=== PATIENT | male | born 2000 | race Asian ===

== ENCOUNTER 2024-04-10 | Outpatient (REF) | payer OTHER, SELFPAY | END 2024-04-10 00:01 | disposition home or self-care (01) | LOC: HO.HHCLNP | PROVIDERS: Visit Provider Family Medicine | DX: K62.89 Other specified diseases of anus and rectum (principal); L02.91 Cutaneous abscess, unspecified | CPT/HCPCS: 87070; 87077; 87186; 87205 ==

== ENCOUNTER 2024-04-15 12:28 | Emergency (ER) | payer OTHER, SELFPAY ==
--- NOTE | ~2024-04-15 | CT_ITS ---
EXAMINATION: CT ABDOMEN AND PELVIS WITH CONTRAST CLINICAL INFORMATION: Reason for Exam ?abscess versus thrombosed internal hemorrhoid COMPARISON: None available. TECHNIQUE: Multidetector volumetric images were obtained from the superior aspect of the liver through the pubic symphysis following administration 85 mL of Omnipaque 350 intravenous contrast. Sagittal and coronal reformatted images were obtained on the technologist's workstation. Oral contrast: No This CT examination was performed using dose optimization techniques as appropriate, variously including the following: *Automated exposure control *Adjustment of mA and/or kV according to patient size (this includes techniques or standardized protocols for targeted exams where dose is matched to indication/reason for exam; i.e. extremities or head) *Use of iterative reconstruction technique DLP: 841 mGy-cm FINDINGS: LUNG BASES: The visualized lung bases are unremarkable. LIVER, GALLBLADDER, AND BILIARY TREE: The liver is normal in size, shape, and attenuation. No focal hepatic lesion or biliary ductal dilatation is present. Gallbladder appears somewhat contracted, suboptimally assessed. PANCREAS: Unremarkable. SPLEEN: Unremarkable. ADRENAL GLANDS: Unremarkable. KIDNEYS AND URETERS: Bilateral nephrograms are symmetric. No hydronephrosis or obstructing calculus identified. BLADDER: Unremarkable. GASTROINTESTINAL TRACT: No evidence of bowel obstruction or significant wall thickening. The appendix is unremarkable. No free fluid or free air is seen. No appreciable abscess in the perirectal region. ABDOMINAL WALL: No significant hernia is appreciated. LYMPH NODES: Normal. VASCULAR: Unremarkable. PELVIC VISCERA: Unremarkable. OSSEOUS STRUCTURES: Unremarkable. CT/CT abdomen pelvis w IV con IMPRESSION: No acute findings identified in the abdomen/pelvis. No perirectal abscess identified. Electronically signed by: Sajan Dennis MD 04/15/2024 11:46 PM EDT
--- NOTE | 2024-04-15 12:46 | ED_ITS ---
HPI - General Adult General Chief complaint: General Medical Stated complaint: ref here for ultrasound by pcp Time Seen by Provider: 04/15/24 20:52 Source: patient Mode of arrival: ambulatory Limitations: no limitations History of Present Illness HPI narrative: Patient is a 23-year-old male who presents emergency department for evaluation. He states that he was referred from [facility] for evaluation, concern for perianal abscess versus a possible fistula. He states he was seen there 1 week ago for rectal pain, and a rectal lump that has progressed despite antibiotic and lidocaine cream. He does admit that the area has drained pus- like drainage for the past 3 days. His pain is becoming significantly worse which has prompted his presentation here. He denies associated fevers, chills, diarrhea, constipation. Related Data Allergies Allergy/AdvReac Type Severity Reaction Status Date / Time No Known Allergies Allergy Verified 04/15/24 12:50 Review of Systems 2 Review of Systems: Yes all other systems are reviewed and are negative PMFSH Past Medical History Attestation statement: The following information was validated with the patient. Source: old records reviewed Social History Social History Advance Directives: No Advance Directives Information Provided: No Do you have a plan to hurt others: No Plan Physical Exam ED Vital Signs: Vital Signs - 24 hr 04/15/24 12:47 04/15/24 20:45 04/15/24 23:40 Temperature 98.2 F 98.4 F 98.2 F Pulse Rate 84 79 80 Respiratory Rate 18 16 20 Blood Pressure 125/70 126/67 116/42 L Pulse Oximetry 98 98 99 Oxygen Delivery Method Room Air Room Air Room Air 04/16/24 00:54 04/16/24 01:07 Temperature 97.8 F 97.8 F Pulse Rate 98 98 Respiratory Rate 16 16 Blood Pressure 120/52 L 120/52 L Pulse Oximetry 97 97 Oxygen Delivery Method Room Air Room Air BMI result Body Mass Index 35.4 Appearance: Alert.?Oriented to person, place and time. No acute distress.?Normal affect. Eyes: Pupils equal, round and reactive to light.? ENT: Pharynx normal.?? Neck: Normal inspection.? Neck supple.?? CVS: Heart sounds normal. Normal heart rate and rhythm.? Pulses normal.?? Respiratory: No respiratory distress.? Lung sounds clear to auscultation bilaterally?? Abdomen: Soft and non-tender. Normoactive bowel sounds. Rectal: Performed with shell trim operator, ED chemical lab technician Kenny. Patient has a small fissure of the skin at approximately 01:00 o'clock to the perirectal area measuring approximately 0.5 cm no active bleeding. At 03:00 o'clock-04:00 o'clock there is a palpable lump to the perianal region involving the anal rugae which is area he identifies as having pus drained from the area, there is a scabbed opening, and ecchymosis following with no appreciable fluctuance Skin: Skin warm and dry.? Normal skin color.? Extremities: No lower extremity edema.? Neuro: Moves all extremities spontaneously. Sensation intact bilaterally. Ambulates with normal steady gait. Course Course Course Narrative: RME performed by Darlene Moody PA-C. Patient is a 23 year old assigned male at presenting to the emergency department with a perirectal abscess with probable fistula. Patient states he was seen at the [facility] for this and they recommended he come here because his pain has gotten so much worse and is draining. Detailed physical exam and review of systems are deferred to the guncotton packer. Labs ordered. Patient placed back in the waiting room pending room availability and results. Reevaluation(s) Reevaluation #1: CT of the abdomen pelvis without abscess or fluid collection, no acute pathology. Suspect symptoms at this time secondary to internal thrombosed hemorrhoid. Discussed outpatient follow-up with General surgery as being arranged by his primary care doctor, I have also provided contact information for their office so that he may call in the morning to arrange for follow-up. Discussed strict return precautions. All questions answered. Medications Administered Discontinued Medications Generic Name Dose Route Start Last Admin Trade Name Freq PRN Reason Stop Dose Admin Acetaminophen 975 mg 04/15/24 17:01 04/15/24 17:03 Acetaminophen 325 Mg Tablet PO 04/15/24 17:02 975 mg ONCE ONE Administration Sodium Chloride 1,000 mls @ 999 mls/hr 04/15/24 22:00 04/16/24 00:26 Ns IV 04/15/24 23:00 Infused .Q1H1M FAUSTINO Infusion Ibuprofen 800 mg 04/15/24 19:24 04/15/24 19:43 Ibuprofen 800 Mg Tablet PO 04/15/24 19:25 800 mg ONCE ONE Administration Iohexol 85 ml 04/15/24 22:52 04/15/24 22:52 Iohexol 350 Mg/Ml 100 Ml Infus..Btl IV 04/15/24 22:53 85 ml ONCE ONE Administration Medical Decision Making Medical Decision Making [facility] Narrative: His provided history is most concerning for a perianal abscess however on examination appears to be more consistent with a thrombosed internal hemorrhoid given the discoloration of the skin significant pain and induration evaluation. ED attending Dr. Craven also evaluated area and agrees with the following plan of care, I will obtain a CT of the abdomen and pelvis for further evaluation of possible abscess. Serum labs have been obtained CBC is without leukocytosis, no anemia. No electrolyte derangement. No DANA. LFTs within normal range. Mildly elevated CRP at 0.65. Patient has been taking Tylenol and ibuprofen in addition to his topical lidocaine, he was offered additional pain medication for relief at this time and he declines interest in additional meds Differential Diagnosis Differential Diagnoses: The differential diagnosis associated with the presentation includes (See narrative above) Admission/Observation Consideration of admission/observation: Escalation of care including admission/observation considered Lab Data [facility] Lab Attestation statement: I reviewed the patient's lab results. (See narrative above) 04/15/24 14:34 04/15/24 14:34 Labs: Lab Results 04/15/24 Range/Units 14:34 WBC 5.9 (4.8-10.8) X10*3/uL RBC 6.18 H (4.60-5.80) X10*6/uL Hgb 15.8 (14.0-18.0) g/dl Hct 47.8 (42.0-52.0) % MCV 77.3 L (80.0-98.0) fL MCH 25.6 L (27.0-33.0) pg MCHC 33.1 (31.0-36.0) g/dl RDW 13.3 (11.0-16.0) % Plt Count 214 (160-400) X10*3/uL MPV 9.9 (9.4-12.4) fL Immature Gran % (Auto) 0.7 H (0.0-0.4) % Neut % (Auto) 61.7 (45-73) % Lymph % (Auto) 26.0 (20-40) % Spencer % (Auto) 8.1 (2-11) % Eos % (Auto) 2.5 (0-4) % Baso % (Auto) 1.0 (0-2) % Lymph # (Auto) 1.5 (1.2-4.9) X10*3/uL Spencer # (Auto) 0.5 (0.1-1.2) X10*3/uL Eos # (Auto) 0.2 (0.0-0.4) X10*3/uL Baso # (Auto) 0.1 (0.0-0.2) X10*3/uL Abs Immat Gran (auto) 0.04 H (0.00-0.03) X10*3/uL Absolute Neuts (auto) 3.7 (2.0-8.3) x10*3/uL Absolute Nucleated RBC 0.000 (0.0-0.012) X10*3/uL Nucleated RBC % (auto) 0.0 (0.0-0.2) /100WBC ESR 3 (0-15) MM/HR Sodium 139 (135-145) mmol/L Potassium 4.4 (3.3-5.1) mmol/L Chloride 108 (96-108) mmol/L Carbon Dioxide 25 (22-29) mmol/L Anion Gap 10 L (12-20) BUN 12 (9-16) mg/dL Creatinine 1.26 (0.5-1.4) mg/dL Estim Creat Clear Calc 104.9 Estimated GFR > 60 Random Glucose 88 (60-115) mg/dL Calcium 9.3 (8.4-10.2) mg/dL Magnesium 2.3 (1.6-2.6) mg/dL Total Bilirubin 0.5 (0.0-1.0) mg/dL AST 24 (5-37) U/L ALT 27 (0-40) U/L Alkaline Phosphatase 74 (39-117) U/L C-Reactive Protein 0.65 H (< or = 0.50) mg/dL Total Protein 7.3 (6.5-8.0) g/dL Albumin 4.4 (3.5-5.0) g/dL Radiology Impression Discussion of test interpretation with radiology: I have reviewed the radiologist's reading. Radiologist Impression: CT/CT abdomen pelvis w IV con IMPRESSION: No acute findings identified in the abdomen/pelvis. No perirectal abscess identified. External Record Review External record reviewed: Outpatient record Prescription Management I considered prescription management with: Pain Medication (See narrative above) and Antibiotic (No evidence of abscess, surrounding cellulitis, antibiotics deferred) Discharge Plan Discharge Clinical Impression: Hemorrhoids, internal, thrombosed Patient Disposition: Home, Self-Care Additional Instructions: You can take ibuprofen 200 mg, 3 tablets (600mg) every 6-8 hours as needed for pain, in addition to Tylenol 500 mg, 2 tablets (1,000mg) every 4-6 hours as needed for pain, but not to exceed 3 doses daily (3,000mg).? Sitz baths as described, topical lidocaine cream as previously prescribed. I do still feel that you would benefit from referral to General surgery, although your primary care doctor has sent this referral I have provided their contact information for you, please call the office tomorrow to schedule follow- up. You can return back to emergency department with any new or worsening symptoms or concerns. Referrals: [facility] General Surgeons [Provider Group] Interventions: ED Discharge Assessment Last Done: 04/16/24 01:07 Discharge Date/Time: 04/16/24 01:08 Print Language: Kiswahili
[2024-04-15 12:47] VITALS: BP 125/70; PULSE 84; RESP 18; TEMP 36.8; O2SAT 98; BMI 35.4
[2024-04-15 14:39] LABS: MANUAL DIFF FLAG NO
[2024-04-15 14:46] LABS: Basophils Absolute Auto 0.1 X10*3/uL (0.0-0.2); Eosinophils Absolute Auto 0.2 X10*3/uL (0.0-0.4); Eosinophils Percent Auto 2.5 % (0-4); Hematocrit 47.8 % (42.0-52.0); Hemoglobin 15.8 g/dl (14.0-18.0); Imm Gran Abs Auto 0.04 X10*3/uL (0.00-0.03); Imm Gran Pct Auto 0.7 % (0.0-0.4); Lymphocytes Absolute Auto 1.5 X10*3/uL (1.2-4.9); Mean Corpuscular HGB Conc 33.1 g/dl (31.0-36.0); Mean Corpuscular Hemoglobin 25.6 pg (27.0-33.0); Mean Corpuscular Volume 77.3 fL (80.0-98.0); Mean Platelet Volume 9.9 fL (9.4-12.4); Monocytes Absolute Auto 0.5 X10*3/uL (0.1-1.2); Monocytes Percent Auto 8.1 % (2-11); Neutrophils Absolute Auto 3.7 x10*3/uL (2.0-8.3); Neutrophils Percent Auto 61.7 % (45-73); Platelet Count 214 X10*3/uL (160-400); Red Blood Count 6.18 X10*6/uL (4.60-5.80); Red Cell Distribution Width 13.3 % (11.0-16.0); White Blood Count 5.9 X10*3/uL (4.8-10.8)
[2024-04-15 14:55] LABS: Alanine Aminotransferase 27 U/L (0-40); Albumin Level 4.4 g/dL (3.5-5.0); Alkaline Phosphatase 74 U/L (39-117); Anion Gap 10 (12-20); Aspartate Amino Transferase 24 U/L (5-37); Bilirubin Total 0.5 mg/dL (0.0-1.0); Blood Urea Nitrogen 12 mg/dL (9-16); C Reactive Protein 0.65 mg/dL (< or = 0.50); Calcium 9.3 mg/dL (8.4-10.2); Carbon Dioxide 25 mmol/L (22-29); Chloride 108 mmol/L (96-108); Creatinine Clr Calc Pharmacy 104.9; Estimated Glomerular Filt Rate > 60; Glucose Random 88 mg/dL (60-115); Magnesium 2.3 mg/dL (1.6-2.6); Potassium 4.4 mmol/L (3.3-5.1); Sodium 139 mmol/L (135-145); Total Protein 7.3 g/dL (6.5-8.0)
[2024-04-15 15:20] LABS: Erythrocyte Sedimentation Rate 3 MM/HR (0-15)
[2024-04-15] MEDS: Acetaminophen 325 MG TABLET 975 MG PO (17:03)
[2024-04-15] MEDS: Ibuprofen 800 MG TABLET PO (19:43)
[2024-04-15 20:45] VITALS: BP 126/67; PULSE 79; RESP 16; TEMP 36.9; O2SAT 98
[2024-04-15] MEDS: 0.9 % Sodium Chloride 1,000 ML 999 ML IV (22:37)
[2024-04-15] MEDS: iohexoL 350 MG/ML 100 ML INFUS..BTL 85 ML IV (22:52)
--- NOTE | 2024-04-15 23:33 | PC.NURSE ---
pt refusing pain rx at this time.
[2024-04-15 23:40] VITALS: BP 116/42; PULSE 80; RESP 20; TEMP 36.8; O2SAT 99
[2024-04-16 00:54] VITALS: BP 120/52; PULSE 98; RESP 16; TEMP 36.6; O2SAT 97
[2024-04-16 01:07] VITALS: BP 120/52; PULSE 98; RESP 16; TEMP 36.6; O2SAT 97
== END 2024-04-16 01:08 | disposition home or self-care (01) ==
PROVIDERS: Physician Assistant Medical; Emergency Provider Emergency Medicine; PCP Family Medicine
DX: K64.8 Other hemorrhoids (principal); R10.9 Unspecified abdominal pain; Z79.899 Other long term (current) drug therapy
CPT/HCPCS: 36415; 74177; 80053; 83735; 85025; 85652; 86140; 96360; 96361; 99284; Q9967

== ENCOUNTER 2024-04-17 09:23 | Outpatient (AMB) | payer MEDICAID, SELFPAY ==
--- NOTE | 2024-04-17 09:25 | A.OFFVIS_ITS ---
Vital Signs 04/17/24 09:31 Height 5 ft 6 in Weight 226 lb BMI 36.5 BP 128/71 Blood Pressure Location Rt brachial Position Sitting Pulse 77 Intake Visit Reasons: Remedios anal pain/abscess Intake Note: Patient referred after ER visit on 04-15-2024. Patient c/o perianal pain/ abscess. Alternating tylenol, ibuprofen. Patient c/o: painful sitting, walking. Notice blood on gauze. 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 Proximal month ago patient developed no rectal pain and swelling. A few weeks later he developed spontaneous drainage. He was seen in emergency department now presents here for further evaluation. Patient otherwise tolerating a diet, has regular bowel habits. He denies any anal receptive practice. No history of inflammatory bowel disease/Crohn's. Chart was reviewed and patient evaluated [facility] Social History (Updated 04/17/24 @ 09:32 by GENEVA Dozier) Alcohol intake: never Patient Tobacco Use Status: Never used Tobacco Physical Exam Vital Signs: Last Vital Signs Pulse 77 04/17/24 09:31 BP 128/71 04/17/24 09:31 BMI result Body Mass Index 36.5 GI Other: Abdomen corpulent, soft, benign Anorectal exam demonstrates what appears to be a fistula in the right lateral perianal area. Rectal exam was deferred secondary to patient's discomfort. Exam was quite difficult because the patient was very uncomfortable and had significant pain with evaluation. Assessment & Plan Assessment & Plan (1) [id number]: Code(s): K60.3 - Anal fistula Category: Medical Plan I discussed the findings with the patient and his father, Fistula in ANO. Treatment plan is to have Dr. Enamorado, our colorectal surgeon, evaluate the patient indirect further interventions and studies based on his recommendation. Coding Level of Care Code New Pt Level 4 (52471) Diagnoses Ozlllzr-[id number] K60.3
[2024-04-17 09:31] VITALS: BP 128/71; PULSE 77; BMI 36.5
== END 2024-04-17 09:53 | disposition home or self-care (01) ==
PROVIDERS: PCP Family Medicine; Visit Provider Surgery
DX: K60.3 Anal fistula (principal)
CPT/HCPCS: 99204

== ENCOUNTER → 2024-04-17 09:23 | Outpatient (BNVA) | payer OTHER, SELFPAY | PROVIDERS: PCP Family Medicine; Visit Provider Surgery | DX: K60.3 Anal fistula (principal) | CPT/HCPCS: 99202 ==

== ENCOUNTER 2024-04-19 07:03 | Day surgery (SDC) | payer MEDICAID, SELFPAY ==
--- NOTE | 2024-04-17 13:40 | HO.ANESPROP2 ---
Documented by User: Hannah Judge NP 04/17/24 13:41 HPI - Anesthesia Eval Consult details Narrative: 23yo M for EUA,I&D,possible seton placement PMFSH Active Problems Active Problems: All Active Problems Mwkjdvo-fc-qky (Acute) Social History Social History Alcohol intake: never Patient Tobacco Use Status: Never used Tobacco Are you DNR?: No Advance Directives: No Advance Directives Information Provided: Yes Recently lost weight without trying: No Nutrition Risks: No Nutritional Risk Meds Allergies Allergy/AdvReac Type Severity Reaction Status Date / Time No Known Allergies Allergy Verified 04/17/24 09:30 Home Medications ?Medication ?Instructions ?Recorded ?Confirmed ?Last Taken ?Type ibuprofen 800 mg tablet 800 mg PO TID 04/17/24 04/17/24 04/18/24 History lidocaine 5 % topical cream appl topical BID 04/17/24 04/17/24 04/18/24 History sulfamethoxazole 800 1 tab PO BID 04/17/24 04/17/24 04/18/24 History mg-trimethoprim 160 mg tablet Exam Pertinent Lab Results Pertinent Lab Results: Laboratory Tests 04/15/24 14:34 WBC 5.9 Hgb 15.8 Hct 47.8 Plt Count 214 Sodium 139 Potassium 4.4 Chloride 108 Carbon Dioxide 25 BUN 12 Creatinine 1.26 Assessment and Plan Assessment Anesthesia Assessment: Chart Reviewed Documented by User: Kelly Cali MD 04/19/24 08:56 PMFSH Active Problems Active Problems: All Active Problems Blcsvyj-nz-chq (Acute) Increased BMI Family History Family history of problems with anesthesia: No Surgical History History of Problems with Anesthesia: No Social History Social History Alcohol intake: never Patient Tobacco Use Status: Never used Tobacco Are you DNR?: No Advance Directives: No Advance Directives Information Provided: Yes Recently lost weight without trying: No Nutrition Risks: No Nutritional Risk Meds Allergies Allergy/AdvReac Type Severity Reaction Status Date / Time No Known Allergies Allergy Verified 04/17/24 09:30 Home Medications ?Medication ?Instructions ?Recorded ?Confirmed ?Last Taken ?Type ibuprofen 800 mg tablet 800 mg PO TID 04/17/24 04/17/24 04/18/24 History lidocaine 5 % topical cream appl topical BID 04/17/24 04/17/24 04/18/24 History sulfamethoxazole 800 1 tab PO BID 04/17/24 04/17/24 04/18/24 History mg-trimethoprim 160 mg tablet Exam Height,Weight and Vital Signs: Height 5 ft 6 in Weight 102.965 kg Vital Signs Temp Pulse Resp BP Pulse Ox O2 Del Method 04/19/24 07:15 97.5 F 75 18 101/55 L 97 Room Air Airway Mallampati Class: III TM Dist: >3cm Neck ROM: Full Loose/Missing/Broken Teeth: No (Denies broken, loose, missing teeth) Heart: RRR Lungs: CTAB Assessment and Plan Assessment Anesthesia Assessment: Anesthesia Plan Discussed and Chart Reviewed Final Anesthetic Review Family History of Problems with Anesthesia: No History of Problems with Anesthesia: No NPO: Yes ASA Class: II Final Preanesthetic Review: No Changes in Pt Med Stat, Meds/Allgs Chart Reviewed, Consent Obtained/Reviewed and Anes Risks/Benef Reviewed Patient Risk: Low Procedure Risk: Low Assessment/Block/Sedation in SS: Assess/Block/Sedation-SS Anesthetic Plan Anesthetic Plan: GA Disposition: Standard PACU
[2024-04-19] VITALS (11 sets, daily range): BP systolic 93–126; BP diastolic 45–80; PULSE 65–93; RESP 12–18; TEMP 36.4–36.6; O2SAT 97–100; BMI 36.6
[2024-04-19] MEDS: Lactated Ringers 1,000 ML 100 ML IVCONT (07:43)
--- NOTE | 2024-04-19 08:04 | MHC.SHP ---
Pre-Procedural Eval Section A - 24 Hr Update-Section A only Date of Service: 04/19/24 The patient is an INPATIENT: Yes Changes since office visit: No Cold of Flu in the past 2 weeks, No New Medical Problems, No Changes in Medication and No Patient answered all questions The patient has been examined within 24 hours of the surgical procedure. The History & Physical has been completed within 30 days and I have reviewed it.: Yes Section B - Complete if H&P > 30 days Chief Complaint: Anal fistula Allergies: Allergies Allergy/AdvReac Type Severity Reaction Status Date / Time No Known Allergies Allergy Verified 04/17/24 09:30 Plan I have reviewed the history and physical and performed a pertinent physical examination on my patient. No changes have occurred unless specified. Time Spent With Patient Time: Total time managing care of this patient today ____ minutes.
--- NOTE | 2024-04-19 09:46 | W.PM.OPN ---
Operative Note Operative Note Date of Service: 04/19/24 Narrative: Preop diagnosis: Anal fistula Postop diagnosis: 1.Anal fistula 2.thrombosed external hemorrhoid Procedure: Exam under anesthesia, seton placement for an anal fistula; and hemorrhoidectomy x 1 column Surgeon: Odell Enamorado MD The patient is a 23-year-old male seen in the office because of drainage and pain in the perianal area. He had a sinus in the right side along with what appeared to be a thrombosed external hemorrhoid on the same side. In view of his complaints, I had schedule him for some under anesthesia and likely seton placement. He understood the technique of the planned procedure as well as the risks, benefits, and alternatives He was brought to the operating room. He was placed in prone juan josé-knife position under general anesthesia via endotracheal tube. The buttocks were retracted with wide tape laterally. The perianal area was prepped and draped in the usual sterile fashion. A surgical time-out was done. The patient received Cefotan 2 g IV preoperatively The perianal area was infiltrated with lidocaine 1%. Examination of the perianal area revealed thrombosed hemorrhoid on the right side. There was note of an external fistula sinus on the right posterolateral area, about 4 cm from the verge I inserted the Kaiden Mccall retractor. I examined the anal canal circumferentially. There were no other lesions seen. There was no induration I was able to pass the probe easily from the external sinus radially into the dentate line towards its internal opening. I passed a seton around this using a vessel loop. I shortened the tract by dividing the overlying skin and the external fistulous tract with electrocautery. I closed the seton as a loop by tying this with silk 3-0 ties I cauterized the edges of the opened external sinus to achieve hemostasis The patient also had this external hemorrhoid with thrombosis on the anal verge on the right side. I evacuated the clot and excise the hemorrhoid with electrocautery. I left this open as the surface area was small. I observed for hemostasis. Once hemostasis was confirmed, I infiltrated the perianal area with Marcaine 0.5% for postop analgesia. Dressings were applied. The procedure was completed. The patient tolerated procedure well. There were no immediate complications. Initial and final counts of sponges and instruments were correct. Estimated blood loss about 20 cc The patient was extubated without difficulty and transferred to the recovery room with stable vital signs.
[2024-04-19] MEDS: oxyCODONE HCl Immed Release 5 MG TABLET PO (11:30)
== END 2024-04-19 12:05 | disposition home or self-care (01) ==
PROVIDERS: PCP Family Medicine; Visit Provider Surgery
PROC: (CPT 46020; principal; 2024-04-19 08:30)
DX: K60.3 Anal fistula (principal); K64.5 Perianal venous thrombosis; K62.89 Other specified diseases of anus and rectum; Z79.1 Long term (current) use of non-steroidal anti-inflammatories (NSAID)
CPT/HCPCS: 46020; 46320; J0131; J2250; J2704; J3010

== ENCOUNTER → 2024-04-19 07:03 | Outpatient (BNV) | payer MEDICAID, SELFPAY | PROVIDERS: PCP Family Medicine; Visit Provider Surgery | DX: K64.8 Other hemorrhoids (principal); K60.3 Anal fistula | CPT/HCPCS: 46020; 46320 ==

== ENCOUNTER 2024-05-09 14:52 | Outpatient (AMB) | payer MEDICAID, SELFPAY ==
--- NOTE | 2024-05-09 14:58 | MHC.OFFVIS ---
Intake Visit Reasons: S/P EUA, poss I&D, poss seton placement Intake Note: This patient presents for post-op assessment status post Exam under anesthesia, seton placement for an anal fistula; and hemorrhoidectomy x 1 column. Pt c/o; reports some stinging when washing the area, reports draining, reports there is a wound where is seton is , reports he is doing sitz baths 1-2 times daily. 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 He tolerated procedure well He says that he has been doing well lately and feels much better with regards to pain. He seems to be quite happy with the outcome so far. [facility] Surgical History Hx of surgical procedure (~04/19/24) Social History Alcohol intake: never Patient Tobacco Use Status: Never used Tobacco Review of Systems Const Denies chills and Denies fever(s) Card Denies chest pain Resp Denies cough GI Denies abdominal pain Physical Exam Const Other: Able to sit down comfortably General: comfortable and no acute distress Resp Effort & Inspection: normal respiratory effort GI Other: Rectal exam shows the hemorrhoidectomy sites to be healing well, the seton is in place, there was no new induration, there is an open wound on the fistula tract, no new sinuses noted, no evidence of infection Assessment & Plan Assessment & Plan (1) Lgsaiot-is-jrm: Code(s): K60.3 - Anal fistula Category: Medical Plan: Status post hemorrhoidectomy and seton placement. He is doing quite well. I advised him to continue to do hot Sitz baths. I will see him again next month to see if we can tighten the seton. He appears comfortable and seems to be happy with the outcome so far. Coding Level of Care Code Global (36539) Diagnoses Sbzewqu-io-rza K60.3
== END 2024-05-09 15:19 | disposition home or self-care (01) ==
PROVIDERS: PCP Family Medicine; Visit Provider Surgery
DX: K60.3 Anal fistula (principal)
CPT/HCPCS: 99024

== ENCOUNTER → 2024-05-09 14:52 | Outpatient (BNVA) | payer MEDICAID, SELFPAY | PROVIDERS: PCP Family Medicine; Visit Provider Surgery | DX: K60.3 Anal fistula (principal) | CPT/HCPCS: 99212 ==

== ENCOUNTER → 2024-06-05 10:48 | Outpatient (REF) | payer MEDICAID, SELFPAY ==
--- NOTE | 2024-06-05 10:50 | HM_ITS ---
* Total monitoring time 2 days. * Underlying rhythm is sinus with an average rate of 95/Min. * No significant supraventricular or ventricular ectopy. * Sinus tachycardia noted but no otherwise, no significant arrhythmias. * No significant pauses or AV blocks. * Patient marker associated with sinus tachycardia. * Palpitations/skipped beats/fullness in patient diary associated with sinus tachycardia. MTDD
== END ==
LOC: HO.CARD 10:48
PROVIDERS: PCP Family Medicine; Visit Provider Internal Medicine
DX: R94.31 Abnormal electrocardiogram [ECG] [EKG] (principal); R00.2 Palpitations
CPT/HCPCS: 93225

== ENCOUNTER → 2024-06-05 10:50 | Outpatient (BNV) | payer MEDICAID, SELFPAY | PROVIDERS: PCP Family Medicine; Visit Provider Internal Medicine | DX: R00.0 Tachycardia, unspecified (principal) | CPT/HCPCS: 93227 ==

== ENCOUNTER 2024-06-12 08:50 | Outpatient (AMB) | payer MEDICAID, SELFPAY ==
--- NOTE | 2024-06-12 09:04 | A.OFFVIS_ITS ---
Vital Signs 06/12/24 09:12 Height 5 ft 7 in Weight 231 lb BMI 36.2 BP 127/60 Blood Pressure Location Lt brachial Position Sitting Pulse 81 Intake Visit Reasons: 1 month follow up S/P EUA poss seton Intake Note: This patient presents for one month follow-up seton. Pt c/o; reports no complaints at this time. 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 He denies any new complaints. He describes some drainage from the area along with some blood once in a while. He does admit to some pain after he has been standing for long periods of time. He does state that overall, he feels much better compared to prior to the seton placement. [facility] Surgical History Hx of surgical procedure (~04/19/24) Social History Alcohol intake: never Patient Tobacco Use Status: Never used Tobacco Review of Systems Const Denies chills and Denies fever(s) Physical Exam Vital Signs: Last Vital Signs Pulse 81 06/12/24 09:12 BP 127/60 06/12/24 09:12 BMI result Body Mass Index 36.2 Const General: comfortable and no acute distress Resp Effort & Inspection: normal respiratory effort GI Other: Rectal exam shows the seton to be in place, still relatively tight the remaining fistula tract. Assessment & Plan Assessment & Plan (1) Gpzphjh-cd-[id number]: Code(s): K60.3 - Anal fistula Category: Medical Plan: Status post seton placement. The seton is still tight around the remaining fistula tract. I did not tighten this today. Otherwise, he seems to be doing well and feels much better compared to before the surgery I was therefore see him again in the office in about 1 month. Coding Level of Care Code Global (61156) Diagnoses Rpawdbo-au-vvr K60.3
[2024-06-12 09:12] VITALS: BP 127/60; PULSE 81; BMI 36.2
== END 2024-06-12 09:37 | disposition home or self-care (01) ==
PROVIDERS: PCP Family Medicine; Visit Provider Surgery
DX: K60.30 Anal fistula, unspecified (principal)
CPT/HCPCS: 99024

== ENCOUNTER → 2024-06-12 08:50 | Outpatient (BNVA) | payer MEDICAID, SELFPAY | PROVIDERS: PCP Family Medicine; Visit Provider Surgery | DX: K60.30 Anal fistula, unspecified (principal); Z98.890 Other specified postprocedural states | CPT/HCPCS: 99212 ==

== ENCOUNTER 2024-07-08 08:56 | Outpatient (AMB) | payer MEDICAID, SELFPAY ==
[2024-07-08 09:02] VITALS: BMI 36.2
--- NOTE | 2024-07-08 09:02 | A.OFFVIS_ITS ---
Vital Signs 07/08/24 09:02 Height 5 ft 7 in Weight 231 lb 0.006 oz BMI 36.2 Intake Visit Reasons: 1 month follow up S/P EUA poss seton Intake Note: This patient presents for one month follow up S/P EUA , seton. Pt c/o; reports no complaints. Mobile Phlebotomist Required: No Accompanied by: Other Relationship Allergies No Known Allergies Allergy (Verified 07/08/24 09:07) Medication List - Last Reconciled 07/08/24 by Odell Enamorado MD ibuprofen 600 mg PO Q6H PRN ibuprofen 800 mg PO TID lidocaine 5% appl topical BID oxycodone-acetaminophen 5-325 mg (Percocet) 1 tab PO Q4-6H PRN sulfamethoxazole-trimethoprim 800-160 mg 1 tab PO BID HPI HPI 1 month follow up S/P EUA poss seton: Details: He is here for follow-up for his anal fistula with a seton in place. He denies any new complaints. He describes some scanty drainage from the fistula tract. Overall, he says he feeling better. [facility] Surgical History Hx of surgical procedure (~04/19/24) Social History Alcohol intake: never Patient Tobacco Use Status: Never used Tobacco Review of Systems Const Denies chills and Denies fever(s) Card Denies chest pain, Denies dyspnea and Denies dyspnea on exertion Resp Denies cough, Denies dyspnea and Denies dyspnea on exertion GI Denies hematochezia and Denies change in bowel habits Denies hematuria and Denies difficulty urinating Musc Denies back pain and Denies limited range of motion Neuro Denies focal weakness and Denies convulsions Psych Denies depression and Denies mood swings Physical Exam Vital Signs: BMI result Body Mass Index 36.2 Const General: comfortable and no acute distress Resp Effort & Inspection: normal respiratory effort GI Other: Rectal exam shows the seton to be still tight in the the tract. The fistula tract is very short. There is no new induration or any new sinuses Assessment & Plan Assessment & Plan (1) Zphkriz-wl-tlb: Code(s): K60.3 - Anal fistula Category: Medical Plan: I will leave the seton in place. The residual fistula is very short. I might remove this next month in the office on a follow-up. I will therefore see him again. He is to continue warm soaks to the area as possible with good perianal hygiene as well. Coding Level of Care Code Est Pt Level 2 (43993) Diagnoses Lqrpuxc-qo-amx K60.3
== END 2024-07-08 09:21 | disposition home or self-care (01) ==
PROVIDERS: PCP Family Medicine; Visit Provider Surgery
DX: K60.30 Anal fistula, unspecified (principal)
CPT/HCPCS: 99212

== ENCOUNTER → 2024-07-08 08:56 | Outpatient (BNVA) | payer MEDICAID, SELFPAY | PROVIDERS: PCP Family Medicine; Visit Provider Surgery | DX: K60.30 Anal fistula, unspecified (principal); Z96.89 Presence of other specified functional implants | CPT/HCPCS: 99212 ==

== ENCOUNTER 2024-08-12 08:56 | Outpatient (AMB) | payer MEDICAID, SELFPAY ==
[2024-08-12 08:57] VITALS: BP 128/60; PULSE 83; BMI 36.5
--- NOTE | 2024-08-12 08:57 | A.OFFVIS_ITS ---
Vital Signs 08/12/24 08:57 Height 5 ft 7 in Weight 233 lb BMI 36.5 BP 128/60 Blood Pressure Location Rt brachial Position Sitting Pulse 83 Intake Visit Reasons: 1m follow mup s/p EUA poss seton Intake Note: This patient presents for one month follow-up seton. Pt c/o; reports no complaints at this time. Bilingual Office Assistant Required: No Accompanied by: Father Allergies No Known Allergies Allergy (Verified 08/12/24 09:03) Medication List - Last Reconciled 08/12/24 by Odell Enamorado MD ibuprofen 600 mg PO Q6H PRN ibuprofen 800 mg PO TID lidocaine 5% appl topical BID oxycodone-acetaminophen 5-325 mg (Percocet) 1 tab PO Q4-6H PRN sulfamethoxazole-trimethoprim 800-160 mg 1 tab PO BID HPI HPI 1m follow mup s/p EUA poss seton: Details: He is here for follow-up for his anal fistula with a seton in place. He says he still notices some drainage He denies any significant pain or any PFSH Surgical History Hx of surgical procedure (~04/19/24) Social History Alcohol intake: never Patient Tobacco Use Status: Never used Tobacco Review of Systems Const Denies chills and Denies fever(s) Card Denies chest pain Resp Denies cough Physical Exam Vital Signs: Last Vital Signs Pulse 83 08/12/24 08:57 BP 128/60 08/12/24 08:57 BMI result Body Mass Index 36.5 Const General: comfortable and no acute distress Resp Effort & Inspection: normal respiratory effort Cardio Rate: regular rate GI Other: Rectal exam shows the seton in place, fistula tract is shorter about the seton is a little looser around the remaining tract Palpation (GI): Soft to palpation Assessment & Plan Assessment & Plan (1) Mvgnyeg-vx-qhx: Code(s): K60.3 - Anal fistula Category: Medical Plan: Seton in place. I was able to tighten the seton some more using a silk 2-0 tie. The residual tract is much shorter. I will see him again in another month. Hopefully the seton will have cut through by then. He can take Tylenol and ibuprofen p.r.n. for pain. Coding Level of Care Code Est Pt Level 3 (85118) Diagnoses Nnpfbcc-ru-luy K60.3
== END 2024-08-12 09:33 | disposition home or self-care (01) ==
PROVIDERS: PCP Family Medicine; Visit Provider Surgery
DX: K60.30 Anal fistula, unspecified (principal)
CPT/HCPCS: 99213

== ENCOUNTER → 2024-08-12 08:56 | Outpatient (BNVA) | payer MEDICAID, SELFPAY | PROVIDERS: PCP Family Medicine; Visit Provider Surgery | DX: Z48.89 Encounter for other specified surgical aftercare (principal); Z98.890 Other specified postprocedural states | CPT/HCPCS: 99212 ==

== ENCOUNTER → 2024-09-23 13:35 | Outpatient (BNVA) | payer MEDICAID, SELFPAY | PROVIDERS: PCP Family Medicine; Visit Provider Surgery | DX: K60.30 Anal fistula, unspecified (principal) | CPT/HCPCS: 99212 ==

== ENCOUNTER 2024-11-04 13:29 | Outpatient (AMB) | payer MEDICAID, SELFPAY ==
--- NOTE | 2024-11-04 13:31 | A.OFFVIS_ITS ---
Vital Signs 11/04/24 13:36 Height 5 ft 7 in Weight 233 lb 11.04 oz BMI 36.6 BP 130/82 Blood Pressure Location Lt brachial Position Sitting Intake Visit Reasons: 1 month s/p seton Intake Note: This patient presents for one month follow-up seton. Pt c/o; admits to continued discharge, sometimes bloody, constipation on and off Autotransfusionist Required: No Accompanied by: Other Relationship Allergies No Known Allergies Allergy (Verified 11/04/24 13:35) Medication List - Last Reconciled 11/04/24 by Odell Enamorado MD ibuprofen 600 mg PO Q6H PRN ibuprofen 800 mg PO TID lidocaine 5% appl topical BID oxycodone-acetaminophen 5-325 mg (Percocet) 1 tab PO Q4-6H PRN sulfamethoxazole-trimethoprim 800-160 mg 1 tab PO BID HPI HPI 1 month s/p seton: Details: He is here for follow-up for his anal fistula with a seton in place. He currently denies significant new complaints. He says that he is a lot more comfortable than last month. He does state that there is some occasional drainage from the remaining fistula tract. He denies any new swelling. [facility] Surgical History Hx of surgical procedure (~04/19/24) Social History Alcohol intake: never Patient Tobacco Use Status: Never used Tobacco Review of Systems Const Denies chills and Denies fever(s) Card Denies chest pain at rest Resp Denies cough GI Denies abdominal pain Physical Exam Const General: comfortable and no acute distress Resp Effort & Inspection: normal respiratory effort GI Other: Rectal exam shows the seton to be in place, with a very short residual fistula tract, no new sinuses or induration Palpation (GI): Soft to palpation and nontender Assessment & Plan Assessment & Plan (1) Bgccsvk-fg-yhe: Code(s): K60.3 - Anal fistula Category: Medical Plan: Seton in place. He has a very short residual fistula tract. I was able to tighten the seton some more using a silk 3-0 tie I will see him again in the office in about a month. Hopefully the seton have cut through completely by then. Coding Level of Care Code Est Pt Level 3 (49538) Diagnoses Acspwme-ur-uue K60.3
[2024-11-04 13:36] VITALS: BP 130/82; BMI 36.6
--- OUTSIDE RECORDS SUMMARY | 2024-11-04 15:41 | XMS_ITS | Clinical Summary ---
Author Organization [employer] [facility] Address [address] [facility] 7t [place] [address] Care Team Providers Care Therapist Rrt Name Role Phone Jud Betts MD Primary Care Provider [phone]- [phone] Allergies No known active allergies Medications Lidocaine 5 % creamIndication s:Perianal pain Apply topically bid 30 g 3 4 Active Active Problems Problem Noted Date Diagnosed Date Perianal pain 04/10/2024 Assessment & Plan (04/10/2024 5:52 PM EDT): Differential includes abscess, vs fissure, less likely thrombosed hemorrhoid given puss and ulceration. -rx Augmentin 875/125 started 04/10/24 for 10 days -wound culture obtained 04/10/24 -sitz baths -lidocaine cream and ibuprofen prn for pain -referral to gen surgery -ER precautions discussed -He agrees with the plan. Encounters Date Type Department Care Team Description 11/01/2024 Population Health Risk Score [facility] (C3) Department [address] [id number] Provider, Population Health Generic from Last 3 Months Immunizations Name Administration Dates Next Due DTaP 12/17/2006, 3,06/17/2002,04/15,02/13/2002 HiB, unspecified 06/17/2003,06/17/2002, 2 Hib (PRP-T) 04/15/2002 IPV 12/17/2006, 3,06/17/2002,04/15,02/13/2002 Influenza injectable quadriv alent preservative free 09/01/2020 MMR 12/17/2006,12/16/2002 Meningococcal MCV4P [id number] 03/17/2021 Tdap 03/17/2021 Social History Tobacco Use Types Packs/Day Years Used Date Smoking Tobacco: Never Smokeless Tobacco: Never Tobacco Cessation:Counseling Given: Not Answered Sex and Gender Information Value Date Recorded Sex Assigned at Male 06/20/2022 10:37 AM EDT Legal Sex Male 10:37 AM EDT Gender Identity Male 06/20/2022 10:37 AM EDT Sexual Orientation Straight 06/20/2022 10 :37 AM EDT Last Filed Vital Signs Vital Sign Reading Time Taken Comments Blood Pressure 119/78 05/17/2024 3:57 PM EDT Pulse 72 05/17/2024 3:57 PM EDT Temperature 36.6 ??C (97.9 ??F) 05/17/2024 3:57 PM ED T Respiratory Rate 20 05/17/2024 3:57 PM EDT Oxygen Saturation 98% 05/17/2024 3:57 PM EDT Inhaled Oxygen Concentration - - Weight 100 kg (221 lb) 05/17/2024 3:57 PM EDT Height 167.6 cm (5' 6 ) 05/17/2024 3:57 PM EDT Body Mass Index 35.67 05/17/2024 3:57 PM EDT Plan of Treatment Health Maintenance Due Date Last Done Comments Chlamydia and Gonorrhea Screening 2001 Depression Screening 2001 HIV Screening 2001 SDOH Screening 2001 Alcohol/Substance Use Screening 2013 Family Planning (PISQ) 2016 HPV Vaccines (1 - Male 3-dose series) 2016 Hepatitis C Screening 12/14/2019 Hepatitis B Vaccines (1 of 3 - 19+ 3-dose series) 2020 COVID-19 Vaccine (3 - 2023- season) 2024 01/06/2021, 12/16/2020 Influenza Vaccine (#1) 2024 09/01/2020 Tobacco Screening 04/15/2025 04/15/2024 DTaP/Tdap/Td Vaccines (7 - Td or Tdap) 03/17/2031 03/17/2021, 12/17/2006, 06/17/2003, Additional history exists Zoster Vaccines (1 of 2) 12/14/2051 RSV Patients and Patients Aged 60 years or older (1 - 1-dose 75+ series) 2076 HIB Vaccines Completed 06/17/2003, 05/22, 04/15/2002, Additional history exists IPV Vaccines Completed 12/17/2006, 05/22, 06/17/2002, Additional history exists Meningococcal Vaccine Aged Out 03/17/2021 No terri jose eligible based on patient's age to complete this topic Hepatitis A Vaccines Aged Out No long er eligible based on patient's age to complete this topic Pneumococcal Vaccine: Pediatrics (0 to 5 Years) and At-Risk Patients (6 to 49) Years) Aged Out No longer eligible based on patient's age to complete this topic RSV under 20 months Aged Out No longe r eligible based on patient's age to complete this topic Rotavirus Vaccines Aged Out No longer eligible based on patient's age to complete this topic Insurance [facility] [place] [id number] [place] [id number] Care Teams Therapist Rrt Relationship Specialty Start Date End Date Jud Betts MD [address] [place] [address] [place] [address] PCP - General Internal Medicine 03/17/21
--- OUTSIDE RECORDS SUMMARY | 2024-11-04 15:41 | XMS_ITS | Encounter Summary ---
Author Organization [employer] Address [address] [facility] 7t [place] [address] Care Team Providers Care Student Development Specialist Name Role Phone Jud Betts MD Primary Care Provider [phone]- [phone] Encounter Details Date Type Department Care Team ([facility] st Contact Info) Description 11/01/2024 Population Health Risk Score [facility] () Department [address] [place] [phone] Provider, Population Health Generic Social History Tobacco Use Types Packs/Day Years Used Date Smoking Tobacco: Never Smokeless Tobacco: Never Sex and Gender Information Value Date Recorded Sex Assigned at Male 06/20/2022 10:37 AM EDT Legal Sex Male 10:37 AM EDT Gender Identity Male 06/20/2022 10:37 AM EDT Sexual Orientation Straight 06/20/2022 10 :37 AM EDT documented as of this encounter Plan of Treatment Not on file documented as of this encounter Visit Diagnoses Not on filedocumented in this encounter Care Teams Student Development Specialist Relationship Specialty Start Date End Date Jud Betts MD [address] [place] [address] PCP - General Internal Medicine 03/17/21 documented as of this encounter
== END 2024-11-04 13:43 | disposition home or self-care (01) ==
LOC: HO.HGS 13:30
PROVIDERS: PCP Family Medicine; Visit Provider Surgery
DX: K60.30 Anal fistula, unspecified (principal)
CPT/HCPCS: 99213

== ENCOUNTER → 2024-11-04 13:29 | Outpatient (BNVA) | payer MEDICAID, SELFPAY | PROVIDERS: PCP Family Medicine; Visit Provider Surgery | DX: K60.30 Anal fistula, unspecified (principal) | CPT/HCPCS: 99212 ==

== ENCOUNTER 2024-12-02 13:21 | Outpatient (AMB) | payer MEDICAID, SELFPAY ==
--- NOTE | 2024-12-02 13:24 | MHC.OFFVIS ---
Vital Signs 12/02/24 13:30 Height 5 ft 7 in Weight 226 lb BMI 35.4 BP 134/61 Blood Pressure Location Lt brachial Position Sitting Pulse 73 Intake Visit Reasons: 1 month s/p seton Intake Note: This patient presents for one month follow-up seton. Pt c/o: Conveyor Feeder Required: No Accompanied by: Self / Same As Patient Allergies No Known Allergies Allergy (Verified 12/02/24 13:25) Medication List - Last Reconciled 12/02/24 by Odell Enamorado MD ibuprofen 600 mg PO Q6H PRN ibuprofen 800 mg PO TID lidocaine 5% appl topical BID oxycodone-acetaminophen 5-325 mg (Percocet) 1 tab PO Q4-6H PRN sulfamethoxazole-trimethoprim 800-160 mg 1 tab PO BID HPI HPI 1 month s/p seton: Details: He is here for follow-up for his anal fistula with a seton in place. He denies any new complaints. He says that he does not notice any bleeding from the residual fistula tract. However, he does note some small amounts of scanty discharge still. He denies any pain. [facility] Surgical History Hx of surgical procedure (~04/19/24) Social History Alcohol intake: never Patient Tobacco Use Status: Never used Tobacco Review of Systems Const Denies chills and Denies fever(s) Card Denies chest pain, Denies dyspnea and Denies dyspnea on exertion Resp Denies cough, Denies dyspnea and Denies dyspnea on exertion GI Denies hematochezia and Denies change in bowel habits Denies hematuria and Denies difficulty urinating Musc Denies back pain and Denies limited range of motion Neuro Denies focal weakness and Denies convulsions Psych Denies depression and Denies mood swings Physical Exam Const General: comfortable and no acute distress Resp Effort & Inspection: normal respiratory effort GI Other: Rectal exam shows the seton to be in place with a very short residual fistula tract, no new sinuses, no induration, no significant discharge Assessment & Plan Assessment & Plan (1) Nhshipr-br-hvr: Code(s): K60.3 - Anal fistula Category: Medical Plan: Seton in place. The residual fistula tract is very short. I did offer to remove this today. I told him that he was always a chance that the fistula can recur wants the seton is removed He was quite anxious about this recurring so he wanted to hold off for today. I told him that I will see him again next month and we will plan on removing this. I told him to bring his dad that time as well so we can explained the plan to him. He was comfortable with the above. Coding Level of Care Code Est Pt Level 3 (82768) Diagnoses Rheznhk-yx-vsy K60.3
[2024-12-02 13:30] VITALS: BP 134/61; PULSE 73; BMI 35.4
--- OUTSIDE RECORDS SUMMARY | 2024-12-02 15:22 | XMS_ITS | Clinical Summary ---
Author Organization [employer] [facility] Address [address] [facility] 7t [place] [address] Care Team Providers Care Vulnerability Assessment Analyst Name Role Phone Jud Betts MD Primary Care Provider [phone]- [phone] Allergies No known active allergies Medications Lidocaine [...] Team Description 11/01/2024 Population Health Risk Score [facility] (C3) Department [address] [phone] Provider, Population Health Generic from Last 3 [...] patient's age to complete this topic Insurance [facility] [place] [id number] Care Teams Vulnerability Assessment Analyst Relationship Specialty Start Date End Date Jud Betts MD [address] [place] [address] [place] [address] PCP - General Internal Medicine 03/17/21
== END 2024-12-02 13:39 | disposition home or self-care (01) ==
LOC: HO.HGS 13:21
PROVIDERS: PCP Family Medicine; Visit Provider Surgery
DX: K60.30 Anal fistula, unspecified (principal)
CPT/HCPCS: 99213

== ENCOUNTER → 2024-12-02 13:21 | Outpatient (BNVA) | payer MEDICAID, SELFPAY | PROVIDERS: PCP Family Medicine; Visit Provider Surgery | DX: K60.30 Anal fistula, unspecified (principal) | CPT/HCPCS: 99212 ==

== ENCOUNTER 2025-01-23 09:24 | Outpatient (AMB) | payer MEDICAID, SELFPAY ==
--- NOTE | 2025-01-23 09:28 | MHC.OFFVIS ---
Vital Signs 01/23/25 09:32 Height 5 ft 7 in Weight 234 lb BMI 36.6 BP 134/61 Blood Pressure Location Rt brachial Position Sitting Pulse 92 Intake Visit Reasons: s/p seton placement Intake Note: Patient here to discuss seton removal. 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 He denies any new complaints. He notices scanty drainage but no further induration. PFSH Surgical History Hx of surgical procedure (~04/19/24) Social History Alcohol intake: never Patient Tobacco Use Status: Never used Tobacco Review of Systems Const Denies chills and Denies fever(s) Card Denies chest pain Resp Denies cough GI Denies abdominal pain Physical Exam Vital Signs: Last Vital Signs Pulse 92 01/23/25 09:32 BP 134/61 01/23/25 09:32 BMI result Body Mass Index 36.6 Const General: comfortable and no acute distress Resp Effort & Inspection: normal respiratory effort Cardio Rate: regular rate GI Other: Rectal exam shows the seton to be in place but with a very short remaining fistula tract, no new induration Assessment & Plan Assessment & Plan (1) Ocjidrk-zh-uxt: Code(s): K60.3 - Anal fistula Category: Medical Plan: Seton in place, with an extremely short residual fistula tract. I therefore removed the seton. I told him that there is always a small chance that this can recur I will see him in the office for another visit in about a month. His father was with him during the visit. Coding Level of Care Code Est Pt Level 2 (89709) Diagnoses Qaxbjzv-av-jaw K60.3
[2025-01-23 09:32] VITALS: BP 134/61; PULSE 92; BMI 36.6
--- OUTSIDE RECORDS SUMMARY | 2025-01-23 10:16 | XMS_ITS | Clinical Summary ---
Author Organization [employer] [facility] Address [address] [facility] 7t [place] [address] Care Team Providers Care Adjunct Mathematics Instructor Name Role Phone Jud Betts MD Primary Care Provider [phone] Allergies No known active allergies Medications Lidocaine [...] Team Description 11/01/2024 Population Health Risk Score [facility] (C3) Department [address] [phone] Provider, Population Health Generic from Last 3 Months Immunizations Immunization Administration Dates Next Due DTaP 12/17/2006, 3,06/17/2002,04/15,02/13/2002 [...] 2001 HIV Screening 2001 SDOH Screening 2001 Disability Screening 2001 Alcohol/Substance Use Screening 2013 Family Planning (PISQ) 2016 HPV Vaccines (1 - Male 3-dose series) 2016 Meningococcal B Vaccine (1 of 2 - Standard) 2017 Hepatitis C Screening 12/14/2019 Hepatitis B Vaccines (1 of 3 - 19+ 3-dose series) 2020 COVID-19 Vaccine (3 - season) 2024 01/06/2021, 12/16/2020 Tobacco Screening 04/15/2025 04/15/2024 Influenza Vaccine (Season Ended) 2025 09/01/2020 DTaP/Tdap/Td Vaccines (7 - Td or Tdap) [...] patient's age to complete this topic Insurance [facility] [place] [id number] [facility] [place] [address] Care Teams Adjunct Mathematics Instructor Relationship Specialty Start Date End Date Jud Betts MD [address] [place] [address] [place] [address] PCP - General Internal Medicine 03/17/21
== END 2025-01-23 09:41 | disposition home or self-care (01) ==
LOC: HO.HGS 09:24
PROVIDERS: PCP Family Medicine; Visit Provider Surgery
DX: K60.30 Anal fistula, unspecified (principal)
CPT/HCPCS: 99212

== ENCOUNTER → 2025-01-23 09:24 | Outpatient (BNVA) | payer MEDICAID, SELFPAY | PROVIDERS: PCP Family Medicine; Visit Provider Surgery | DX: K60.30 Anal fistula, unspecified (principal); Z46.89 Encounter for fitting and adjustment of other specified devices | CPT/HCPCS: 99212 ==

== ENCOUNTER 2025-06-18 09:14 | Outpatient (AMB) | payer MEDICAID, SELFPAY ==
[2025-06-18 09:17] VITALS: BMI 35.1
--- NOTE | 2025-06-18 09:17 | MHC.OFFVIS ---
Vital Signs 06/18/25 09:17 Height 5 ft 7 in Weight 224 lb BMI 35.1 Intake Visit Reasons: 2 month follow-up s/p seton removal Intake Note: This patient presents for a two month follow-up status post seton removal. Pt c/o; no complaints. Pt Escort Required: No Accompanied by: Father Allergies No Known Allergies Allergy (Verified 06/18/25 09:24) Medication List - Last Reconciled 06/18/25 by Odell Enamorado MD No Known Home Meds HPI HPI 2 month follow-up s/p seton removal: Details: He is here for follow-up after seton removal last January 2025 for his anal fistula He denies any swelling or pain. He says that he was a little anxious because he thought that there may have been some drainage in the anus. [facility] Surgical History Hx of surgical procedure (~04/19/24) Social History Alcohol intake: never Patient Tobacco Use Status: Never used Tobacco Review of Systems Const Denies chills and Denies fever(s) Card Denies chest pain, Denies dyspnea and Denies dyspnea on exertion Resp Denies cough, Denies dyspnea and Denies dyspnea on exertion GI Denies hematochezia and Denies change in bowel habits Denies hematuria and Denies difficulty urinating Musc Denies back pain and Denies limited range of motion Neuro Denies focal weakness and Denies convulsions Psych Denies depression and Denies mood swings Physical Exam Vital Signs: BMI result Body Mass Index 35.1 Const General: comfortable and no acute distress Resp Effort & Inspection: normal respiratory effort Cardio Rate: regular rate GI Other: Rectal exam shows no induration, no sinus, no redness, no swelling, no fluctuance, no suggestion of any recurrent fistula Assessment & Plan Assessment & Plan (1) Zsgkfun-sv-yvl: Code(s): K60.3 - Anal fistula Category: Medical Plan: He had his seton removed last January, I assured him that currently, I do not see any evidence of any recurrence. There is no induration, no obvious sinus or any fluctuance or tenderness I did tell him that if he has any recurrent problems, he is welcome to come back to the office to be re-evaluated His father was with him during the visit. Coding Level of Care Code Est Pt Level 3 (27917) Diagnoses Kktzcet-lj-llc K60.3
--- OUTSIDE RECORDS SUMMARY | 2025-06-18 10:31 | XMS_ITS | Clinical Summary ---
Author Organization [employer] Address [address] [facility] 7t [place] [address] Care Team Providers Care Retort Pre Cooker Name Role Phone Jud Betts MD Primary Care Provider +1- [phone] Allergies No known active allergies Medications Lidocaine [...] precautions discussed -He agrees with the plan. Immunizations Immunization Administration Dates Next Due DTaP [...] 72 05/17/2024 3:57 PM EDT Temperature 36.6 C (97.9 F) 05/17/2024 3:57 PM EDT Respiratory Rate 20 05/17/2024 3:57 PM EDT [...] of 3 - 19+ 3-dose series) 2020 Tobacco Screening 04/15/2025 04/15/2024 COVID-19 Vaccine (3 - 2024- season) 2025 01/06/2021, 12/16/2020 Influenza Vaccine (#1) 2025 09/01/2020 DTaP/Tdap/Td Vaccines (7 - Td [...] Years) and At-Risk Patients (6 to 49) Years Aged Out No longer eligible based on patient's age to complete this topic RSV under 20 months Aged Out No longe r eligible based on patient's age to complete this topic Rotavirus Vaccines Aged Out No longer eligible based on patient's age to complete this topic Insurance [facility] C3 [place] [id number] Care Teams Retort Pre Cooker Relationship Specialty Start Date End Date Jud Betts MD [address] [place] [address] [place] [address] PCP - General Internal Medicine 03/17/21
== END 2025-06-18 10:00 | disposition home or self-care (01) ==
PROVIDERS: PCP Family Medicine; Visit Provider Surgery
DX: K60.30 Anal fistula, unspecified (principal)
CPT/HCPCS: 99213

== ENCOUNTER → 2025-06-18 09:14 | Outpatient (BNVA) | payer MEDICAID, OTHER, SELFPAY | PROVIDERS: PCP Family Medicine; Visit Provider Surgery | DX: K60.30 Anal fistula, unspecified (principal) | CPT/HCPCS: 99212 ==